=== PATIENT | male | born 1990 | race Caucasian/White ===

== ENCOUNTER 2024-05-03 13:29 | Emergency (ER) | payer OTHER ==
[~2024-05-03] VITALS: Ht 188 cm; Wt 106.9 kg
[2024-05-03 16:07] VITALS: BP 144/91
== END 2024-05-03 15:56 | disposition home or self-care (01) ==
LOC: ED 13:29
DX: S61.411A Laceration without foreign body of right hand, initial encounter (principal); W23.1XXA Caught, crushed, jammed, or pinched between stationary objects, initial encounter; Z88.2 Allergy status to sulfonamides
CPT/HCPCS: 12001; 99282-25